=== PATIENT | male | born 1970 | race American Indian/Alaskan Native ===

== ENCOUNTER 2017-03-03 16:44 | Emergency (ER) | payer SELFPAY ==
[2017-03-03 17:20] VITALS: BP 131/87
== END 2017-03-03 19:43 | disposition left against medical advice (07) ==
LOC: ED 16:44
DX: M54.2 Cervicalgia (principal); Z53.21 Procedure and treatment not carried out due to patient leaving prior to being seen by health care provider
CPT/HCPCS: 82962